=== PATIENT | male | born 1965 ===

== ENCOUNTER 2018-03-19 07:38 | Day surgery (SDC) | payer OTHER ==
[2018-03-19] MEDS ORDERED: Propofol 10 mg/ml Inj (20 ML) ONE ×2 (09:22)
[2018-03-19] MEDS ORDERED: Lidocaine Hydrochloride 5 ML INJ ONE (09:22)
[2018-03-19] MEDS ORDERED: Lactated Ringer's 500 ML IV ONE ×2 (09:26)
--- NOTE | 2018-03-19 09:27 | CP.SDSHP ---
Same Day Surgery H & P - History Proposed Procedure: COLONSCOPY Pre-Op Diagnosis: SEE NOTES - Previous Medical/Surgical History Cardiac: Hypertension Endocrine/Metabolic: Diabetes Misc: Other Pain: 2.Mild Pain - Allergies Allergies: Allergies No Known Allergies Allergy (Verified 03/19/18 08:30) - Physical Exam General Appearance: N Vital Signs: Vital Signs 03/19/18 08:35 Temperature 99.3 F Pulse Rate 74 Respiratory 19 Rate Blood Pressure 151/81 H O2 Sat by Pulse 97 Oximetry Mental Status: Alert & Oriented x3 Neuro: WNL Heart: Other Lungs: WNL GI: WNL - {Optional Preform as Required} Breast: WNL Abdomen: Other Rectal: WNL Integument: WNL : WNL Ortho: WNL ENT: WNL - Impression Pt. Evaluated Today:Candidate for Anesthesia & Procedure: Yes - Date & Time Time: 09:26 Short Stay Discharge - Short Stay Discharge Admitting Diagnosis/Reason for Visit: COLON SCREENING Disposition: HOME/ ROUTINE
[2018-03-19] MEDS ORDERED: Belladonna-Phenobarbital PO STA (09:43)
[2018-03-19 11:54] VITALS: TEMP 98.6
[2018-03-19 11:58] VITALS: BP 146/93; PULSE 63; RESP 15; O2SAT 100
== END 2018-03-19 12:15 | disposition home or self-care (01) ==
LOC: C.ENDO 07:38
PROVIDERS: ATTEND Specialist
DX: Z12.11 Encounter for screening for malignant neoplasm of colon (principal); K57.90 Diverticulosis of intestine, part unspecified, without perforation or abscess without bleeding; K64.8 Other hemorrhoids; K52.9 Noninfective gastroenteritis and colitis, unspecified; E11.9 Type 2 diabetes mellitus without complications; I10 Essential (primary) hypertension
CPT/HCPCS: 45380; 82948; 88305; J2704; J7040; J7120